=== PATIENT | female | born 1960 | race Native Hawaiian/Other Pacific Islander ===

== ENCOUNTER → 2017-01-11 18:07 | Outpatient (CLI) | payer OTHER | END | disposition home or self-care (01) | LOC: AMB 18:07 | DX: M79.641 Pain in right hand (principal); S63.256A Unspecified dislocation of right little finger, initial encounter; V19.88XA Pedal cyclist (driver) (passenger) injured in other specified transport accidents, initial encounter; Y92.414 Local residential or business street as the place of occurrence of the external cause | CPT/HCPCS: A0425; A0427 ==

== ENCOUNTER 2017-01-11 18:28 | Emergency (ER) | payer OTHER ==
[~2017-01-11] VITALS: Ht 170.2 cm; Wt 74.8 kg
== END 2017-01-11 21:10 | disposition home or self-care (01) ==
LOC: ED 18:28
PROC: 2W3JX1Z Immobilization of Right Finger using Splint (ICD-10-PCS; principal; 2017-01-11)
DX: S62.616A Displaced fracture of proximal phalanx of right little finger, initial encounter for closed fracture (principal); W17.89XA Other fall from one level to another, initial encounter; Y93.55 Activity, bike riding; Y92.098 Other place in other non-institutional residence as the place of occurrence of the external cause
CPT/HCPCS: 36415; 99283; J2001

== ENCOUNTER 2017-06-02 14:02 | Outpatient (CLI) | payer OTHER | END 2017-06-02 14:15 | disposition short-term general hospital (02) | LOC: AMB 14:02 | DX: R42 Dizziness and giddiness (principal); R11.0 Nausea | CPT/HCPCS: A0425; A0427 ==

== ENCOUNTER 2017-06-02 14:25 | Emergency (ER) | payer OTHER ==
[~2017-06-02] VITALS: Ht 170.2 cm; Wt 72.6 kg
[2017-06-02 14:20] VITALS: TEMP 98.8
[2017-06-02 16:08] LABS: PLATELET COUNT 267 K/uL (152-353)
[2017-06-02 16:19] LABS: POTASSIUM 2.7 mmol/L (3.6-5.2); SODIUM 129 mmol/L (136-145)
[2017-06-02 18:20] VITALS: BP 102/74
== END 2017-06-02 18:20 | disposition home or self-care (01) ==
LOC: ED 14:25
PROVIDERS: Specialist
DX: R42 Dizziness and giddiness (principal); J44.1 Chronic obstructive pulmonary disease with (acute) exacerbation
CPT/HCPCS: 36415; 80053; 81000; 83735; 84100; 85027; 94640; 94664; 94760; 96361; 96374; 96375; 99284; J2405; J2930

== ENCOUNTER 2017-06-26 14:57 | Outpatient (CLI) | payer OTHER | END 2017-06-26 15:10 | disposition short-term general hospital (02) | LOC: AMB 14:57 | DX: R06.02 Shortness of breath (principal); R06.2 Wheezing | CPT/HCPCS: A0425; A0427 ==

== ENCOUNTER 2017-06-26 15:15 | Emergency (ER) | payer OTHER ==
[~2017-06-26] VITALS: Ht 170.2 cm; Wt 70.3 kg
[2017-06-26 15:10] VITALS: TEMP 97.7
[2017-06-26 15:49] LABS: PLATELET COUNT 193 K/uL (152-353)
[2017-06-26 16:05] LABS: POTASSIUM 3.6 mmol/L (3.6-5.2); SODIUM 141 mmol/L (136-145)
[2017-06-26 18:05] VITALS: BP 118/65
== END 2017-06-26 18:05 | disposition home or self-care (01) ==
LOC: ED 15:15
DX: R06.09 Other forms of dyspnea (principal); J44.1 Chronic obstructive pulmonary disease with (acute) exacerbation; T14.8 Other injury of unspecified body region; W57.XXXA Bitten or stung by nonvenomous insect and other nonvenomous arthropods, initial encounter; Y93.89 Activity, other specified; Y92.89 Other specified places as the place of occurrence of the external cause
CPT/HCPCS: 80053; 83880; 84484; 85027; 93005; 94640; 94664; 94760; 96374; 99284; J2930

== ENCOUNTER 2017-07-27 15:26 | Outpatient (CLI) | payer OTHER ==
[2017-07-27] MEDS ORDERED: ZOCOR80 MG OR (15:53)
[2017-07-27] MEDS ORDERED: LYRICA75 MG OR (15:54)
[2017-07-27] MEDS ORDERED: CYCL10TA35 PO (15:54)
[2017-07-27] MEDS ORDERED: LORA1TAB17 PO (15:54)
[2017-07-27] MEDS ORDERED: RANITIDINE 150150 MG PO (15:54)
== END 2017-07-27 15:40 | disposition short-term general hospital (02) ==
LOC: AMB 15:26
DX: M79.604 Pain in right leg (principal)
CPT/HCPCS: A0425; A0429

== ENCOUNTER 2017-07-27 15:40 | Emergency (ER) | payer OTHER ==
[~2017-07-27] VITALS: Ht 170.2 cm; Wt 74.8 kg
[2017-07-27 15:45] VITALS: TEMP 99
[2017-07-27] MEDS ORDERED: ZOCOR80 MG OR (15:53)
[2017-07-27] MEDS ORDERED: LYRICA75 MG OR (15:54)
[2017-07-27] MEDS ORDERED: LORA1TAB17 PO (15:54)
[2017-07-27] MEDS ORDERED: RANITIDINE 150150 MG PO (15:54)
[2017-07-27] MEDS ORDERED: CYCL10TA35 PO (15:54)
[2017-07-27 16:35] VITALS: BP 125/62
== END 2017-07-27 17:11 | disposition home or self-care (01) ==
LOC: ED 15:40
DX: L03.115 Cellulitis of right lower limb (principal); S70.361A Insect bite (nonvenomous), right thigh, initial encounter; W57.XXXA Bitten or stung by nonvenomous insect and other nonvenomous arthropods, initial encounter; Y93.89 Activity, other specified; Y92.89 Other specified places as the place of occurrence of the external cause
CPT/HCPCS: 99282

== ENCOUNTER 2017-09-29 14:01 | Outpatient (CLI) | payer OTHER ==
[~2017-09-29 14:01] MED LIST: CYCL10TA35 PO; LORA1TAB17 PO; LYRICA75 MG OR; RANITIDINE 150150 MG PO; ZOCOR80 MG OR
== END 2017-09-29 14:15 | disposition short-term general hospital (02) ==
LOC: AMB 14:01
DX: S50.862A Insect bite (nonvenomous) of left forearm, initial encounter (principal); S50.362A Insect bite (nonvenomous) of left elbow, initial encounter; W57.XXXA Bitten or stung by nonvenomous insect and other nonvenomous arthropods, initial encounter; Y92.098 Other place in other non-institutional residence as the place of occurrence of the external cause
CPT/HCPCS: A0425; A0427

== ENCOUNTER 2017-09-29 14:15 | Emergency (ER) | payer OTHER ==
[~2017-09-29] VITALS: Ht 170.2 cm; Wt 77.1 kg
[2017-09-29 14:18] VITALS: BP 109/63; TEMP 98.3
== END 2017-09-29 15:26 | disposition home or self-care (01) ==
LOC: ED 14:15
DX: S50.862A Insect bite (nonvenomous) of left forearm, initial encounter (principal); S50.362A Insect bite (nonvenomous) of left elbow, initial encounter; L03.114 Cellulitis of left upper limb; W57.XXXA Bitten or stung by nonvenomous insect and other nonvenomous arthropods, initial encounter; Y92.098 Other place in other non-institutional residence as the place of occurrence of the external cause
CPT/HCPCS: 96372; 99283; J0696; J1100

== ENCOUNTER 2017-11-15 18:42 | Outpatient (CLI) | payer OTHER ==
[2017-11-15] MEDS ORDERED: OMEPRAZOLE40 MG OR (19:08)
[2017-11-15] MEDS ORDERED: SERT100T PO (19:09)
[2017-11-15] MEDS ORDERED: ASPIR-LOW81 MG PO (19:10)
== END 2017-11-15 18:55 | disposition short-term general hospital (02) ==
LOC: AMB 18:42
DX: R47.89 Other speech disturbances (principal); J44.9 Chronic obstructive pulmonary disease, unspecified
CPT/HCPCS: A0425; A0427

== ENCOUNTER 2017-11-15 19:03 | Emergency (ER) | payer OTHER ==
[~2017-11-15] VITALS: Ht 167.6 cm; Wt 108.9 kg
[2017-11-15] MEDS ORDERED: OMEPRAZOLE40 MG OR (19:08)
[2017-11-15] MEDS ORDERED: SERT100T PO (19:09)
[2017-11-15] MEDS ORDERED: ASPIR-LOW81 MG PO (19:10)
[2017-11-15 19:26] LABS: PLATELET COUNT 197 K/uL (152-353)
[2017-11-15 19:28] LABS: POTASSIUM 3.8 mmol/L (3.6-5.2)
[2017-11-15 20:42] VITALS: BP 120/75; TEMP 98.7
== END 2017-11-15 20:44 | disposition home or self-care (01) ==
LOC: ED 19:03
DX: S20.212A Contusion of left front wall of thorax, initial encounter (principal); G45.9 Transient cerebral ischemic attack, unspecified; X58.XXXA Exposure to other specified factors, initial encounter; Y93.89 Activity, other specified; Y92.89 Other specified places as the place of occurrence of the external cause
CPT/HCPCS: 80053; 85027; 99283

== ENCOUNTER 2018-05-09 10:57 | Outpatient (CLI) | payer OTHER ==
[~2018-05-09 10:57] MED LIST changes: +ASPIR-LOW81 MG PO; +OMEPRAZOLE40 MG OR; +SERT100T PO
== END 2018-05-09 11:11 | disposition short-term general hospital (02) ==
LOC: AMB 10:57
DX: S80.861A Insect bite (nonvenomous), right lower leg, initial encounter (principal)
CPT/HCPCS: A0425; A0429

== ENCOUNTER 2018-05-09 11:13 | Emergency (ER) | payer OTHER ==
[~2018-05-09] VITALS: Ht 170.2 cm; Wt 74.8 kg
[2018-05-09 11:18] VITALS: BP 105/57; TEMP 98.8
== END 2018-05-09 11:40 | disposition home or self-care (01) ==
LOC: ED 11:13
DX: S80.862A Insect bite (nonvenomous), left lower leg, initial encounter (principal); S80.861A Insect bite (nonvenomous), right lower leg, initial encounter; W57.XXXA Bitten or stung by nonvenomous insect and other nonvenomous arthropods, initial encounter; Y92.89 Other specified places as the place of occurrence of the external cause
CPT/HCPCS: 99281

== ENCOUNTER 2018-08-14 16:03 | Outpatient (CLI) | payer OTHER | END 2018-08-14 16:16 | disposition short-term general hospital (02) | LOC: AMB 16:03 | DX: R55 Syncope and collapse (principal); R41.82 Altered mental status, unspecified | CPT/HCPCS: A0425; A0426 ==

== ENCOUNTER 2018-08-14 16:21 | Emergency (ER) | payer OTHER ==
[~2018-08-14] VITALS: Ht 170.2 cm; Wt 74.8 kg
[2018-08-14 16:55] LABS: PLATELET COUNT 235 K/uL (152-353)
[2018-08-14 17:00] LABS: POTASSIUM 3.6 mmol/L (3.6-5.2)
[2018-08-14 17:56] LABS: PARTIAL THROMBOPLASTIN TIME 22.3 SECONDS (24.5-33.6)
[2018-08-14 18:50] VITALS: BP 132/76; TEMP 98
== END 2018-08-14 18:50 | disposition home or self-care (01) ==
LOC: ED 16:21
PROVIDERS: Family Medicine
DX: R06.4 Hyperventilation (principal); F41.0 Panic disorder [episodic paroxysmal anxiety]; R51 Headache; Z86.73 Personal history of transient ischemic attack (TIA), and cerebral infarction without residual deficits
CPT/HCPCS: 80053; 81000; 85027; 85610; 85730; 93005; 99283

== ENCOUNTER 2019-01-19 14:53 | Outpatient (CLI) | payer OTHER | END 2019-01-19 15:06 | disposition short-term general hospital (02) | LOC: AMB 14:53 | DX: R51 Headache (principal); M54.2 Cervicalgia; F43.9 Reaction to severe stress, unspecified | CPT/HCPCS: A0425; A0427 ==

== ENCOUNTER 2019-03-11 19:23 | Outpatient (CLI) | payer OTHER | END 2019-03-11 19:26 | disposition short-term general hospital (02) | LOC: AMB 19:23 | DX: K13.79 Other lesions of oral mucosa (principal); Z72.0 Tobacco use | CPT/HCPCS: A0425; A0429 ==

== ENCOUNTER 2019-03-11 19:30 | Emergency (ER) | payer OTHER ==
[~2019-03-11] VITALS: Ht 170.2 cm; Wt 74.8 kg
[2019-03-11 19:30] VITALS: BP 114/63; TEMP 98.6
== END 2019-03-11 20:05 | disposition home or self-care (01) ==
LOC: ED 19:30
DX: K13.79 Other lesions of oral mucosa (principal); F17.210 Nicotine dependence, cigarettes, uncomplicated
CPT/HCPCS: 99282

== ENCOUNTER 2019-04-10 19:52 | Emergency (ER) | payer OTHER ==
[~2019-04-10] VITALS: Ht 170.2 cm; Wt 74.8 kg
[2019-04-10 21:25] VITALS: BP 104/56; TEMP 97.7
== END 2019-04-10 21:27 | disposition home or self-care (01) ==
LOC: ED 19:52
DX: S80.02XA Contusion of left knee, initial encounter (principal); W22.8XXA Striking against or struck by other objects, initial encounter; Y92.89 Other specified places as the place of occurrence of the external cause
CPT/HCPCS: 96372; 99282; 99283; J1885

== ENCOUNTER 2019-08-26 08:05 | Outpatient (CLI) | payer OTHER | END 2019-08-26 08:19 | disposition short-term general hospital (02) | LOC: AMB 08:05 | DX: R05 Cough (principal); R06.89 Other abnormalities of breathing | CPT/HCPCS: A0425; A0427 ==

== ENCOUNTER 2019-08-26 08:19 | Inpatient (IN) | payer OTHER ==
[~2019-08-26] VITALS: Ht 170.2 cm; Wt 68.1 kg
[2019-08-26] VITALS (13 sets, daily range): BP systolic 106–128; BP diastolic 46–67; TEMP 97.3–98; Ht 170.2 cm; Wt 68.1 kg
[2019-08-26 08:51] LABS: PLATELET COUNT 213 K/uL (152-353)
[2019-08-26 08:58] LABS: POTASSIUM 4.8 mmol/L (3.6-5.2); SODIUM 138 mmol/L (136-145)
[2019-08-26 09:34] LABS: PARTIAL THROMBOPLASTIN TIME 21.2 SECONDS (24.5-33.6)
[2019-08-27] VITALS: BP 116/62; TEMP 98
[2019-08-27 04:29] VITALS: BP 101/46; TEMP 97.6
[2019-08-27 08:00] VITALS: BP 91/50; TEMP 97.6
[2019-08-27 12:00] VITALS: BP 98/51; TEMP 98
[2019-08-27 16:00] VITALS: BP 108/52; TEMP 98
[2019-08-27 20:00] VITALS: BP 100/52; TEMP 97.6
[2019-08-28] VITALS: BP 102/55; TEMP 97.7
[2019-08-28 04:00] VITALS: BP 108/58; TEMP 98
[2019-08-28 08:00] VITALS: BP 96/60; TEMP 97.8
[2019-08-28] MEDS ORDERED: AZIT250T3 PO (10:02)
[2019-08-28] MEDS ORDERED: XOPENEX 1.25MG INH 3 INH (10:03)
[2019-08-28] MEDS ORDERED: PANTOPRAZOLE 40MG TA PO (10:04)
[2019-08-28] MEDS ORDERED: RANI150T78 PO (10:05)
[2019-08-28] MEDS ORDERED: PRED10TA27 PO (10:07)
[2019-08-28 12:00] VITALS: BP 108/58; TEMP 98.3
== END 2019-08-28 12:05 | disposition home or self-care (01) | DRG 192 ==
LOC: ED 08:19 → MED/SURG 10:23
PROVIDERS: ADMIT Student in an Organized Health Care Education/Training Program
DX: J44.1 Chronic obstructive pulmonary disease with (acute) exacerbation (principal); Z72.0 Tobacco use; K21.9 Gastro-esophageal reflux disease without esophagitis; Z91.14 Patient's other noncompliance with medication regimen; I10 Essential (primary) hypertension
CPT/HCPCS: 80048; 83735; 83880; 84484; 85027; 85610; 85730; 87502; 93005; 94640; 94664; 94760; 96365; 96375; 99284; J0456; J1650; J1885; J2060; J2405; J2920; J2930

== ENCOUNTER 2020-09-21 16:18 | Emergency (ER) | payer OTHER ==
[~2020-09-21] VITALS: Ht 170.2 cm; Wt 72.6 kg
[~2020-09-21 16:18] MED LIST changes: +AZIT250T3 PO; +PANTOPRAZOLE 40MG TA PO; +PRED10TA27 PO; +RANI150T78 PO; +XOPENEX 1.25MG INH 3 INH
[2020-09-21 16:25] VITALS: TEMP 97.5
[2020-09-21 17:00] LABS: PLATELET COUNT 220 K/uL (152-353)
[2020-09-21 17:09] LABS: POTASSIUM 3.6 mmol/L (3.6-5.2); SODIUM 140 mmol/L (136-145)
[2020-09-21 17:20] LABS: PARTIAL THROMBOPLASTIN TIME 21.6 SECONDS (24.5-33.6)
[2020-09-21 18:44] VITALS: BP 126/71
== END 2020-09-21 18:45 | disposition home or self-care (01) ==
LOC: ED 16:18
PROVIDERS: Hospitalist
DX: R55 Syncope and collapse (principal); E86.0 Dehydration; R19.7 Diarrhea, unspecified
CPT/HCPCS: 80053; 80320; 82550; 83880; 84484; 85027; 85610; 85730; 93005; 96360; 99284